=== PATIENT | male | born 1995 | race Hispanic/Latino ===

== ENCOUNTER 2017-05-09 09:12 | Emergency (ER) | payer OTHER ==
[2017-05-09] MEDS ORDERED: BOOSTRIX IM ONE (09:32)
--- NOTE | 2017-05-09 09:36 | Emergency Department Report ---
ED Upper Extremity Inj HPI - General Chief Complaint: Extremity Injury, Upper Stated Complaint: FINGER INJURY Time Seen by Provider: 05/09/17 09:19 Source: patient Mode of arrival: Ambulatory Limitations: No Limitations - History of Present Illness Initial Comments: This is a 22-year-old male nontoxic, well nourished in appearance, no acute signs of distress presents to the ED complaining of a bridge at the right thumb region. Patient stated he was at work when a piece of wood fell on his right thumb distal phalanx. Patient denies any numbness or tingling. Patient discussed pain as 7 out of 10 and describes aching. Patient denies any other extremity injury. Patient has a chest pain, shortness of breath, numbness, tingling, fever, chills, headache, stiff neck, or blurry vision. Patient does not remember his last tetanus vaccine. Allergies to aspirin. Denies past medical history. MD Complaint: Injury to:: right, finger -: This morning Other Extremity Injury: Fingers: Right Other Injuries: none Place: work Severity scale (0 -10): 7 Improves With: none Worsens With: none Context: injury Associated Symptoms: denies other symptoms. denies: weakness, numbness, neck pain, suspects foreign body, nausea/vomiting, heard/felt popping sensat - Related Data Previous Rx's Medication Instructions Recorded Last Taken Type Acetaminophen [Acetaminophen 8 650 mg PO Q6H #30 tablet.er 05/09/17 Unknown Rx Hour] Sulfamethoxazole/Trimethoprim 1 each PO BID #14 tablet 05/09/17 Unknown Rx [Bactrim DS TAB] Allergies Allergy/AdvReac Type Severity Reaction Status Date / Time aspirin Allergy Swelling Verified 05/09/17 09:17 bee venom protein (honey bee) Allergy Swelling Verified 05/09/17 09:17 ED Review of Systems ROS: Stated complaint: FINGER INJURY Other details as noted in HPI Constitutional: denies: chills, fever Eyes: denies: eye pain, eye discharge, vision change ENT: denies: ear pain, throat pain Respiratory: denies: cough, shortness of breath, wheezing Cardiovascular: denies: chest pain, palpitations Endocrine: no symptoms reported Gastrointestinal: denies: abdominal pain, nausea, diarrhea Genitourinary: denies: urgency, dysuria Musculoskeletal: denies: back pain, joint swelling, arthralgia Skin: denies: rash, lesions Neurological: denies: headache, weakness, paresthesias Psychiatric: denies: anxiety, depression Hematological/Lymphatic: denies: easy bleeding, easy bruising ED Past Medical Hx - Past Medical History Previous Medical History?: No - Surgical History Past Surgical History?: No - Social History Smoking Status: Never Smoker Substance Use Type: None - Medications Home Medications: Home Medications Medication Instructions Recorded Confirmed Last Taken Type Acetaminophen [Acetaminophen 8 650 mg PO Q6H #30 tablet.er 05/09/17 Unknown Rx Hour] Sulfamethoxazole/Trimethoprim 1 each PO BID #14 tablet 05/09/17 Unknown Rx [Bactrim DS TAB] ED Physical Exam - General Limitations: No Limitations General appearance: alert, in no apparent distress - Head Head exam: Present: atraumatic, normocephalic, normal inspection - Eye Eye exam: Present: normal appearance, PERRL, EOMI. Absent: scleral icterus, conjunctival injection, nystagmus, periorbital swelling, periorbital tenderness Pupils: Present: normal accommodation - ENT ENT exam: Present: normal exam, normal orophraynx, mucous membranes moist, TM's normal bilaterally, normal external ear exam - Neck Neck exam: Present: normal inspection, full ROM. Absent: tenderness, meningismus, lymphadenopathy, thyromegaly - Respiratory Respiratory exam: Present: normal lung sounds bilaterally. Absent: respiratory distress, wheezes, rales, rhonchi, stridor, chest wall tenderness, accessory muscle use, decreased breath sounds, prolonged expiratory - Cardiovascular Cardiovascular Exam: Present: regular rate, normal rhythm, normal heart sounds. Absent: bradycardia, tachycardia, irregular rhythm, systolic murmur, diastolic murmur, rubs, gallop - GI/Abdominal GI/Abdominal exam: Present: soft, normal bowel sounds. Absent: distended, tenderness, guarding, rebound, rigid, diminished bowel sounds - Rectal Rectal exam: Present: deferred - Extremities Exam Extremities exam: Present: normal inspection, full ROM, tenderness, normal capillary refill. Absent: pedal edema, joint swelling, calf tenderness - Expanded Upper Extremity Exam Right General: Present: normal inspection Shoulder Exam: Present: normal inspection, full ROM Upper Arm exam: Present: normal inspection, full ROM Elbow exam: Present: normal inspection, full ROM Forearm Wrist exam: Present: normal inspection, full ROM Hand Wrist exam: Present: normal inspection, full ROM, tenderness, abrasion, ecchymosis (nailbed), subungual hematoma (right thumb). Absent: swelling, laceration, deformity, crepidus, dislocation, erythema, nail avulsion Neuro motor exam: Present: wrist extension intact, thumb opposition intact, thumb IP flexion intact, thumb adduction intact, fingers 2-5 abduction intact Neurosensory exam: Present: 2-point discrimination, radial nerve intact, ulnar nerve intact, median nerve intact Vascular: Present: vascular compromise, normal capillary refill, radial pulse, brachial pulse, ulnar pulse - Back Exam Back exam: Present: normal inspection, full ROM. Absent: tenderness, CVA tenderness (R), CVA tenderness (L), muscle spasm, paraspinal tenderness, vertebral tenderness, rash noted - Neurological Exam Neurological exam: Present: alert, oriented X3, CN II-XII intact, normal gait, reflexes normal - Psychiatric Psychiatric exam: Present: normal affect, normal mood - Skin Skin exam: Present: warm, dry, intact, normal color. Absent: rash ED Course Vital Signs 05/09/17 09:17 Temperature 98.5 F Pulse Rate 79 Respiratory 18 Rate Blood Pressure 138/72 O2 Sat by Pulse 100 Oximetry - Reevaluation(s) Reevaluation #1: 05/09/17 09:38 Patient is speaking in full sentences with no signs of distress noted. Reevaluation #2: 05/09/17 11:03 Post splint assessment; patient denies any numbness or tingling sensation. Normal cap refill. Patient denies spending too tight. Neurovascular intact. - Procedure Description Procedures done: Under sterile field, I used Betadine to clean the area. I then had the patient soak right thumb in a 500 mL of water with soap. I then used Betadine again cleansed the area. I then used 0.5% Marcaine plain and injected 3 mL to the proximal left thumb digit for a digital block. I then used a cautery and cauterized one central region of the nailbed for subungual hematoma. Positive bleeding in the cauterized area occured instantly after procedure. I then applied a sterile 4 x 4 with tape with a finger distal splint for the phalanx. Patient tolerated procedure well with no signs of distress. ED Medical Decision Making - Medical Decision Making 22-year-old male that presents with trauma to the right thumb. Xray has been obtained and dictated by radiologist. The subungual hematoma has been successfully freed with cautery. Patient received a distal phalanx finger splint and was instructed to follow-up with Dr. Cueto in 3-5 days. There has been clean with soap and water. Splint has been placed. Patient received a tetanus booster. This was instructed of acute wound care. Patient was instructed to follow-up with a primary care doctor in 3-5 days or if symptoms worsen and continue return to emergency room as soon as possible possible. Patient is hemodynamically stable with stable vital signs. Patient states he is feeling better. At time time of discharge, the patient does not seem toxic or ill in appearance. No acute signs of distress noted. Patient agrees to discharge treatment plan of care. No further questions noted by the patient. Patient received acetaminophen and Bactrim at discharge. Post splint assessment ; patient denies any numbness or tingling sensation. Normal cap refill. Patient denies spending too tight. Neurovascular intact. Critical care attestation.: If time is entered above; I have spent that time in minutes in the direct care of this critically ill patient, excluding procedure time. ED Disposition Clinical Impression: Abrasion, Subungual hematoma, Closed fracture of tuft of distal phalanx of thumb Disposition: DC-01 TO HOME OR SELFCARE Is pt being admited?: No Does the pt Need Aspirin: No Condition: Stable Instructions: Subungual Hematoma (ED), Splint Care (ED), Abrasion (ED), RICE Therapy (ED), Thumb Fracture (ED) Additional Instructions: Follow-up with Dr. Cueto/primary care doctor in 3-5 days or if symptoms worsen and continue return to emergency room as soon as possible possible. Prescriptions: Acetaminophen [Acetaminophen 8 Hour] 650 mg PO Q6H #30 tablet.er Sulfamethoxazole/Trimethoprim [Bactrim DS TAB] 1 each PO BID #14 tablet Referrals: EMMA ANDERSON MD [Primary Care Provider] - 3-5 Days ESTRELLA CUETO MD [Staff Physician] - 3-5 Days DANIELLE BEDOYA MD [Staff Physician] - 3-5 Days [facility] [Outside] - 3-5 Days [facility] [Outside] - 3-5 Days Forms: Work/School Release Form(ED)
[2017-05-09] MEDS ORDERED: MARCAINE 0.5% INFILTRATI ONE (10:04)
--- NOTE | 2017-05-09 11:39 | XRay Report ---
RIGHT FINGER RADIOGRAPHS INDICATION: Crush injury right thumb, pain. COMPARISON: None similar at this institution. FINDINGS: AP view of the right hand with oblique and lateral projections of the right thumb demonstrate a comminuted fracture of the tip of the distal phalanx of the thumb. Mild overlying soft tissue injury as well. No joint involvement. Normal remainder exam. CONCLUSION: Subtle comminuted fracture of right thumb tuft, as detailed above. Thank you for the opportunity to participate in this patient's care.
[2017-05-09 12:14] VITALS: BP 138/72
== END 2017-05-09 12:30 | disposition home or self-care (01) ==
LOC: EDSEX → ED 09:12
DX: S62.521A Displaced fracture of distal phalanx of right thumb, initial encounter for closed fracture (principal); S60.011A Contusion of right thumb without damage to nail, initial encounter; Z88.6 Allergy status to analgesic agent; Z91.030 Bee allergy status; W22.8XXA Striking against or struck by other objects, initial encounter; Y93.9 Activity, unspecified; Y99.9 Unspecified external cause status; Y92.69 Other specified industrial and construction area as the place of occurrence of the external cause
CPT/HCPCS: 90715